=== PATIENT | female | born 1960 | race Caucasian/White ===

== ENCOUNTER 2021-09-23 16:41 | Emergency (ER) | payer OTHER, MEDICAID, SELFPAY ==
[2021-09-23 16:46] VITALS: BP 154/72; PULSE 91; RESP 18; TEMP 36.9; O2SAT 98; BMI 24.7
[2021-09-23] MEDS: diphenhydrAMINE 25 MG TABLET PO (17:18)
--- NOTE | 2021-09-23 17:31 | ED.ALLEREA ---
HPI - Allergic Reaction <DORIS Bone - Last Filed: 09/23/21 19:21> General Chief complaint: Allergic Reaction Stated complaint: ALLERGIC TO SPIDERS LEFT HAND BITE Source: patient Mode of arrival: Ambulatory Limitations: no limitations History of Present Illness HPI narrative: 60-year-old female presents to the emergency department today for concern about a spider bite on her left hand. Patient reports she was working in a garage when all of a sudden she felt some itching on her hand and then reports she put her hand up in the air to prevent it from swelling and is coming into the emergency department requesting prednisone as this has happened to her before. Patient reports 15 years ago she had a spider bite on her hand and it was swollen and she needed a steroid.Patient denies any visit spider at the time of incident, reports that it has been itchy, but denies any pain, local edema, redness or streaking upper arm. She reports that this happened 3 hours ago and she is allergic to spider venom. Patient denies any swelling of her mouth or throat, denies any difficulty breathing or chest pain, denies any hives or other signs of allergic reaction. Patient does not have any bite clancy. Known history of allergy to: Spiders Related Data Previous Rx's Medication Instructions Recorded cetirizine 10 mg tablet 10 mg PO QDAY #14 tab 08/04/16 hydroxyzine HCl 10 mg tablet 10 mg PO BEDTIME PRN #14 tab 09/23/21 Allergies Allergy/AdvReac Type Severity Reaction Status Date / Time spider venom Allergy Verified 09/23/21 16:51 Review of Systems <DORIS Bone - Last Filed: 09/23/21 19:21> Review of Systems Narrative: General: denies fever, chills Head/Neck: denies headache, neck pain Eyes: denies visual changes, eye pain Cardio: denies chest pain, palpitations Respiratory: denies shortness of breath, cough GI: denies abdominal pain, nausea, vomiting, or diarrhea : denies dysuria, hematuria MSK: denies joint pain, muscle weakness Skin: denies rash, in endorses itching to left hand Neuro: denies numbness, tingling Patient History <DORIS Bone - Last Filed: 09/23/21 19:21> Social History Smoking Status: Never smoker Smoking Status: Never smoker Substance Use Type: does not use Exam <DORIS Bone - Last Filed: 09/23/21 19:21> Narrative Exam Narrative: Independently reviewed vitals signs and nursing notes. General: Awake, alert, nontoxic, no cardiorespiratory distress Head/Neck: Atraumatic, neck full range of motion Eyes: EOMI, conjunctiva normal Nose: nares patent, no rhinorrhea Mouth/Throat: moist mucus membranes, posterior pharynx normal, no oral lesions Cardio: Regular rate and rhythm, no peripheral edema Respiratory: respirations unlabored without wheezing, stridor, or rales. No retractions. GI: Abdomen soft, nontender MSK: Moves all extremities, neurovascularly intact Skin: Normal capillary refill, no rash, left hand without any signs of edema, erythema, joint effusion, rash, hives, or infection. Neuro: Normal speech and cognition, normal gait Initial Vital Signs Initial Vital Signs: Vital Signs Temperature 98.4 F 09/23/21 16:46 Pulse Rate 91 H 09/23/21 16:46 Respiratory Rate 18 09/23/21 16:46 Blood Pressure 154/72 H 09/23/21 16:46 Pulse Oximetry 98 09/23/21 16:46 <Ashley Velez MD - Last Filed: 09/24/21 07:02> Initial Vital Signs Initial Vital Signs: Vital Signs Temperature 98.4 F 09/23/21 16:46 Pulse Rate 91 H 09/23/21 16:46 Respiratory Rate 18 09/23/21 16:46 Blood Pressure 154/72 H 09/23/21 16:46 Pulse Oximetry 98 09/23/21 16:46 Course <DORIS Bone - Last Filed: 09/23/21 19:21> Orders Ordered: Discontinued Medications Diphenhydramine HCl (Diphenhydramine 25 Mg Tablet) 25 mg PO NOW ONE Stop: 09/23/21 17:03 Last Admin: 09/23/21 17:18 Dose: 25 mg Documented by: BTONER Vital Signs Vital signs: Vital Signs - 8 hr 09/23/21 16:46 Temperature 98.4 F Pulse Rate 91 H Respiratory Rate 18 Blood Pressure 154/72 H Pulse Oximetry 98 <Ashley Velez MD - Last Filed: 09/24/21 07:02> Orders Ordered: Discontinued Medications Diphenhydramine HCl (Diphenhydramine 25 Mg Tablet) 25 mg PO NOW ONE Stop: 09/23/21 17:03 Last Admin: 09/23/21 17:18 Dose: 25 mg Documented by: BTONER Vital Signs Vital signs: Vital Signs - 8 hr 09/23/21 16:46 Temperature 98.4 F Pulse Rate 91 H Respiratory Rate 18 Blood Pressure 154/72 H Pulse Oximetry 98 MDM - Allergic Reaction <DORIS Bone - Last Filed: 09/23/21 19:21> MDM Narrative Medical decision making narrative: 60-year-old female presents to the emergency department for concern of spider bite and requesting steroids. Patient does not have any physical signs of a bite, without any skin changes or local edema, erythema, cellulitis, or other. Patient was given some Benadryl she reports it was pruritic. She was prescribed hydroxyzine and instructed to not take this with her cetirizine, or Benadryl. Patient was cooperative and understands to return to the emergency department if she develops any signs of infection, develops a fever, redness, swelling, or develops any signs of anaphylaxis. Patient is appropriate and amenable to discharge home. Vital signs are stable on repeat examination is unremarkable. Patient has been informed of results. Patient has been given strict return to ER precautions for any new or worsening symptoms. Patient understands to follow up closely with outpatient providers as instructed. Patient understands plan and agrees to discharge home. All questions and concerns answered at this time. Discharge Plan Departure Patient Disposition: Home Clinical Impression: Urticaria Instructions: DI for Hives Activity Restrictions/Additional Instructions: *You have been diagnosed with urticaria today and given Benadryl. 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 Please do not take your cetirizine with your hydroxyzine. They act similar as well. If he did develop any redness or swelling, fever, streaking up your arm, please return to the emergency department as this may be a sign of infection. *What to do: *Please continue to take your regular medications as directed. [x ] New medication prescriptions sent to your pharmacy: [[facility]] [ ] New medication written as a paper prescription [ ] No new medications given *Please follow up with your primary care provider in 2-3 days, call for an appointment. Let them know you were seen in the Emergency Department and that we ask that you be seen in follow up. We will electronically transmit a record of today's note if your PCP is in our system *If you do not have a primary care provider please contact the [facility] Resource line at [phone]. They will ask some questions about your medical history and help get you set up with a doctor in the community. *Return to Emergency Department if you should have any new, worsening or concerning symptoms, such as [fever greater than 101F, chills, worsening pain, persistent vomiting or other bothersome symptoms] Prescriptions: New hydroxyzine HCl 10 mg tablet 10 mg PO BEDTIME PRN (Reason: itching) Qty: 14 0RF No Action cetirizine 10 MG tablet 10 mg PO QDAY Qty: 14 0RF <Ashley Velez MD - Last Filed: 09/24/21 07:02> [facility] ED [facility]: I was immediately available in the department for consultation throughout this patient's visit. I agree with documentation as above. Ashley Velez MD
== END 2021-09-23 17:37 | disposition home or self-care (01) ==
PROVIDERS: Emergency Provider Nurse Practitioner Critical Care Medicine
DX: L50.9 Urticaria, unspecified (principal)
CPT/HCPCS: 99283